=== PATIENT | male | born 1990 | race Two or more races ===

== ENCOUNTER 2016-12-08 00:49 | Emergency (ER) | payer MEDICAID ==
[~2016-12-08] VITALS: Ht 177.8 cm; Wt 84.0 kg
[2016-12-08 01:11] VITALS: Ht 177.8 cm; Wt 84.0 kg
[2016-12-08] MEDS ORDERED: HC30CR25 TOP (05:14)
[2016-12-08] MEDS ORDERED: CLOT30CR24 TOP (05:14)
[2016-12-08] MEDS ORDERED: HYDR-3011 PO (05:14)
--- NOTE | 2016-12-08 05:43 | ERD ---
ER Documentation Chief Complaint Date/Time DATE: 12/08/16 TIME: 05:40 Chief Complaint STATES HAS RASH ON HIS BACK THATS WORSENING HPI 26-year-old male presents to emergency department for complaints of rash in his back and a rash in his armpits. Patient is complaining of itching. The rash in his armpit is different from the rash in his back. Patient does not have any fever or chills. Patient did not have any family members with the same type of symptoms. Patient denies take any medications to help with symptoms. ROS All systems reviewed and are negative except as per history of present illness. Medications Home Meds Active Scripts Hydroxyzine Hcl* (Hydroxyzine Hcl*) 25 Mg Tablet, 25 MG PO Q8H Y for ITCHING, # 30 TAB Prov:ROXY CAMPBELL NP 12/08/16 Hydrocortisone* Topical (Hydrocortisone* Topical) 2.5%-28.3 Gm Cream..g., 1 APPLIC TOP BID, #1 TUB Prov:ROXY CAMPBELL NP 12/08/16 Clotrimazole* (Clotrimazole* AF) 1% - 30 Gm Cream.gm., 1 APPLIC TOP BID for 7 Days, TUB Prov:ROXY CAMPBELL NP 12/08/16 Allergies Allergies: Coded Allergies: No Known Drug Allergy (Verified Allergy, Unknown, 12/08/16) PMhx/Soc Medical and Surgical Hx: pt denies Medical Hx, pt denies Surgical Hx Hx Alcohol Use: No Hx Substance Use: No Hx Tobacco Use: No Smoking Status: Never smoker FmHx Family History: No coronary disease, No diabetes, No other Physical Exam Vitals Vital Signs Date Time Temp Pulse Resp B/P Pulse Ox O2 Delivery O2 Flow Rate FiO2 12/08/16 01:11 97.4 70 18 144/84 100 Physical Exam GENERAL: The patient is well developed and appropriate for usual state of health, in no apparent distress. CHEST: Clear to auscultation bilaterally. There are no rales, wheezes or rhonchi. HEART: Regular rate and rhythm. No murmurs, clicks, rubs or gallops. No S3 or S4. ABDOMEN: Soft, nontender and nondistended. Good bowel sounds. No rebound or guarding. No gross peritonitis. No gross organomegaly or masses. No Peng sign or McBurney point tenderness. BACK: No midline or flank tenderness. EXTREMITIES: Equal pulses bilaterally. There is no peripheral clubbing, cyanosis or edema. No focal swelling or erythema. Full range of motion. Grossly neurovascularly intact. NEURO: Alert and oriented. Cranial nerves 2-12 intact. Motor strength in all 4 extremities with 5/5 strength. Sensation grossly intact. Normal speech and gait. SKIN: Maculopapular rash in the back. Noted macerated skin erythema in the bilateral axillary area. There is no apparent rash or petechia. The skin is warm and dry. HEMATOLOGIC AND LYMPHATIC: There is no evidence of excessive bruising or lymphedema. No gross cervical, axillary, or inguinal lymphadenopathy. Procedures/MDM Medical decision making: Patient's rash in the back nonspecific at this time, most likely some form of dermatitis, can be from heat rash. Patient's rash in the bilateral axillary area most likely is present with Maggy intertrigo. No symptoms of any sepsis at this time. No symptoms of any MRSA infection. No symptoms of any contagious rash at this time. Prescription was given for clotrimazole 1% cream to apply on the bilateral armpits, was given hydrocortisone cream to apply in the back, hydroxyzine, patient was advised to return to emergency department for any worsening symptoms. Disposition: Home. Stable. Departure Diagnosis: Primary Impression: Candidal intertrigo Additional Impression: Dermatitis Condition: Stable Patient Instructions: Maggy Skin Infection (Adult), Dermatitis, Non-Specific Referrals: [facility] YOU HAVE RECEIVED A MEDICAL SCREENING EXAM AND THE RESULTS INDICATE THAT YOU DO NOT HAVE A CONDITION THAT REQUIRES URGENT TREATMENT IN THE EMERGENCY DEPARTMENT. FURTHER EVALUATION AND TREATMENT OF YOUR CONDITION CAN WAIT UNTIL YOU ARE SEEN IN YOUR DOCTORS OFFICE WITHIN THE NEXT 1-2 DAYS. IT IS YOUR RESPONSIBILITY TO MAKE AN APPOINTMENT FOR FOLOW-UP CARE. IF YOU HAVE A PRIMARY DOCTOR --you should call your primary doctor and schedule an appointment IF YOU DO NOT HAVE A PRIMARY DOCTOR YOU CAN CALL OUR PHYSICIAN REFERRAL HOTLINE AT IF YOU CAN NOT AFFORD TO SEE A PHYSICIAN YOU CAN CHOSE FROM THE FOLLOWING [facility] [address] [facility]. [facility] [address] [facility] [address] [facility] [address] [facility] [address] [facility]. [facility]. [address] [facility]. [facility] YOU HAVE RECEIVED A MEDICAL SCREENING EXAM AND THE RESULTS INDICATE THAT YOU DO NOT HAVE A CONDITION THAT REQUIRES URGENT TREATMENT IN THE EMERGENCY DEPARTMENT. FURTHER EVALUATION AND TREATMENT OF YOUR CONDITION CAN WAIT UNTIL YOU ARE SEEN IN YOUR DOCTORS OFFICE WITHIN THE NEXT 1-2 DAYS. IT IS YOUR RESPONSIBILITY TO MAKE AN APPOINTMENT FOR FOLOW-UP CARE. IF YOU HAVE A PRIMARY DOCTOR --you should call your primary doctor and schedule and appointment IF YOU DO NOT HAVE A PRIMARY DOCTOR YOU CAN CALL OUR PHYSICIAN REFERRAL HOTLINE AT . IF YOU CAN NOT AFFORD TO SEE A PHYSICIAN YOU CAN CHOSE FROM THE FOLLOWING [facility] INSTITUTIONS[facility] [id number] [place] [address] [facility] [address] [place] [address] [facility] + [facility] [address] [place] [address] ROXY CAMPBELL NP Dec 08, 2016 05:43
== END 2016-12-08 05:28 | disposition home or self-care (01) ==
LOC: FTE 00:49
DX: B37.2 Candidiasis of skin and nail (principal); L30.9 Dermatitis, unspecified
CPT/HCPCS: 99283